=== PATIENT | male | born 1965 | race Caucasian/White ===

== ENCOUNTER → 2017-07-26 | Outpatient (CLI) | payer OTHER ==
--- NOTE | 2017-07-26 21:04 | XR ---
Right hand HISTORY: Pain and swelling of metacarpals 3 views of the right hand There is some cortical thickening, volar angulation of the fifth metacarpal with suggestion of cortic al expansion, consider old trauma, correlate for history of prior boxer's fracture. Small ossific den sity distal to the ulna styloid is well-corticated and not felt likely to be acute. Some widening of the medullary space present at the proximal phalanx of the second digit of the right hand. Similar pr ocess may be present in the fifth metacarpal. Possible geode present in the proximal aspect of the mi ddle phalanx of the second digit. 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
== END | disposition home or self-care (01) ==
LOC: RADXRMAIN 12:46
PROVIDERS: ATTEND Family Medicine
DX: Q78.4 Enchondromatosis (principal)

== ENCOUNTER 2023-10-01 18:10 | Emergency (ER) | payer OTHER ==
[2023-10-01] MEDS: diphenhydrAMINE 50 MG/ML 1 ML VIAL IM STA ×2 (18:54→20:55)
[2023-10-01] MEDS: LORazepam 2 MG/ML INJ IM STA ×2 (18:55→20:56)
[2023-10-01] MEDS: HALOPERIDOL LACTATE 5 MG/ML 1 ML VIAL IM STA ×2 (18:55→20:56)
[2023-10-01 19:14] VITALS: BP 138/96; PULSE 96; RESP 18; TEMP 98.4
--- NOTE | 2023-10-01 19:33 | ED ---
General Adult HPI - General Chief complaint: Psychiatric Symptoms Stated complaint: Mental Health Time Seen by Provider: 10/01/23 18:33 Source: patient, EMS Mode of arrival: EMS Limitations: no limitations - History of Present Illness Initial comments: 57-year-old male presenting to the ED with complaints of depression. Patient reports earlier this year both his brother and his father . Reports that he found his brother in his backyard hanging from a tree. States that he has had a difficult time coping with this since then and reports that he would like to have someone to talk to. States that it has been "too much". He states that "everybody just expects you to deal with it and I cannot deal with it anymore. I just need someone to talk to". He denied suicidal or homicidal ideation. Denied auditory or visual hallucinations. At this time has no medical complaints. Denies chest pain, shortness of breath, abdominal pain, nausea, vomiting, changes in bowel habits, changes in bladder habits. Fever or chills. No other complaints at this time. - Related Data Home Medications Medication Instructions Recorded Confirmed No Known Home Medications 10/01/23 10/01/23 Allergies Allergy/AdvReac Type Severity Reaction Status Date / Time No Known Allergies Allergy Verified 10/01/23 19:28 Review of Systems ROS Statement: Those systems with pertinent positive or pertinent negative responses have been documented in the HPI. ROS Other: All systems not noted in ROS Statement are negative. Past Medical History Past Medical History: No Reported History History of Any Multi-Drug Resistant Organisms: None Reported Past Surgical History: No Surgical Hx Reported Past Psychological History: No Psychological Hx Reported Smoking Status: Current every day smoker Past Alcohol Use History: Occasional Past Drug Use History: None Reported General Exam Limitations: no limitations General appearance: alert Eye exam: Present: normal appearance Neck exam: Present: normal inspection Respiratory exam: Present: normal lung sounds bilaterally Cardiovascular Exam: Present: regular rate GI/Abdominal exam: Present: soft (No tenderness to palpation. No rebound guarding or rigidity.) Neurological exam: Present: alert Skin exam: Present: warm, dry Course Vital Signs 10/01/23 18:29 Temperature 98.4 F Pulse Rate 96 Respiratory 18 Rate Blood Pressure 138/96 O2 Sat by Pulse 95 Oximetry Medical Decision Making - Medical Decision Making Was pt. sent in by a medical professional or institution (, PA, LEAD JAVA DEVELOPER ARCHITECT, urgent care, hospital, or intermediate...) When possible be specific @ -No Did you speak to anyone other than the patient for history (EMS, parent, family, police, friend...)? What history was obtained from this source @ -No Did you review nursing and triage notes (agree or disagree)? Why? @ -I reviewed and agree with nursing and triage notes Were old charts reviewed (outside hosp., previous admission, EMS record, old EKG, old radiological studies, urgent care reports/EKG's, intermediate records)? Report findings @ -No old charts were reviewed Differential Diagnosis (chest pain, altered mental status, abdominal pain women, abdominal pain men, vaginal bleeding, weakness, fever, dyspnea, syncope, headache, dizziness, GI bleed, back pain, seizure, CVA, palpatations, mental health, musculoskeletal)? @ -Differential Mental Health Depression, anxiety, bipolar, psychosis, schizophrenia, borderline personality, situational depression, adjustment disorder, behavioral disorder, brain tumor, malingering, substance abuse, encephalopathy, medication reaction, dementia, hypothyroidism, degenerative neurologic disorder, lupus.... This is not meant to be all-inclusive list EKG interpreted by me (3pts min.). @ -None X-rays interpreted by me (1pt min.). @ -None done CT interpreted by me (1pt min.). @ -None done U/S interpreted by me (1pt. min.). @ -None done What testing was considered but not performed or refused? (CT, X-rays, U/S, labs)? Why? @ -None What meds were considered but not given or refused? Why? @ -None Did you discuss the management of the patient with other professionals (professionals i.e. , PA, LEAD JAVA DEVELOPER ARCHITECT, lab, RT, psych nurse, hospice social worker, electronic masking system operator, teacher, combatant diver officer, case briefer)? Give summary @ -No Was smoking cessation discussed for >3mins.? @ -No Was critical care preformed (if so, how long)? @ -No Were there social determinants of health that impacted care today? How? (H omelessness, low income, unemployed, alcoholism, drug addiction, transportation, low edu. Level, literacy, decrease access to med. care, penitentiary, rehab)? @ -No Was there de-escalation of care discussed even if they declined (Discuss DNR or withdrawal of care, Hospice)? DNR status @ -No What co-morbidities impacted this encounter? (DM, HTN, Smoking, COPD, CAD, Cancer, CVA, ARF, Chemo, Hep., AIDS, mental health diagnosis, sleep apnea, morbid obesity)? @ -None Was patient admitted / discharged? Hospital course, mention meds given and route, prescriptions, significant lab abnormalities, going to OR and other pertinent info. @ -Discharge 57-year-old male presents to the ED with complaints of depression. During my evaluation has denied suicidal ideation and staff in the ED has also noted that he has not made any claims of suicidal ideations to anybody. Patient at this time is requesting to go home. He vehemently denies suicidal or homicidal ideations. Patient was also evaluated by my attending physician, Dr. Grayson, who feels that the patient is stable to discharge home with resources. Patient was discharged home in stable condition. Undiagnosed new problem with uncertain prognosis? @ -No Drug Therapy requiring intensive monitoring for toxicity (Heparin, Nitro, Insulin, Cardizem)? @ -No Were any procedures done? @ -No Diagnosis/symptom? @ -Depression Acute, or Chronic, or Acute on Chronic? @ -Acute Uncomplicated (without systemic symptoms) or Complicated (systemic symptoms)? @ -Uncomplicated Side effects of treatment? @ -No Exacerbation, Progression, or Severe Exacerbation? @ -No Poses a threat to life or bodily function? How? (Chest pain, USA, [place], pneumonia, PE, COPD, DKA, ARF, appy, cholecystitis, CVA, Diverticulitis, Homicidal, Suicidal, threat to staff... and all critical care pts) @ -Unlikely Disposition Clinical Impression: Depression Disposition: HOME SELF-CARE Condition: Good Is patient prescribed a controlled substance at d/c from ED?: No Referrals: Clement Crooks MD [Primary Care Provider] - 1-2 days Time of Disposition: 23:43
[2023-10-01] MEDS ORDERED: LORazepam 0.5 MG TAB PO PRN (19:47)
[2023-10-01] MEDS ORDERED: LORazepam 2 MG/ML INJ IM PRN ×3 (19:47)
== END 2023-10-01 23:50 | disposition home or self-care (01) ==
LOC: EC 18:10
DX: F32.A Depression, unspecified (principal); F17.200 Nicotine dependence, unspecified, uncomplicated
CPT/HCPCS: 99285